=== PATIENT | male | born 1955 | race Caucasian/White ===

== ENCOUNTER 2017-02-13 11:01 | Day surgery (SDC) | payer BC ==
[~2017-02-13 11:01] MED LIST: ACETAMINOPHEN 1,000 MG/100 ML BTL IV ONE; CEFAZOLIN 2 Gram 2 GM/50 ML BAG IVPB ONE
[2017-02-13] MEDS ORDERED: MORPHINE SULFATE 5 MG/ML PFS IVP ONE (11:02)
[2017-02-13] MEDS ORDERED: PROPOFOL 10 MG/ML VIAL IV ONE (11:02)
[2017-02-13] MEDS ORDERED: LIDOCAINE 2% MDV (20MG/ML) 20ML VIAL IV ONE (11:02)
[2017-02-13] MEDS ORDERED: KETOROLAC 30 MG/ML VIAL IVP ONE (11:02)
[2017-02-13] MEDS ORDERED: SEVOFLURANE 250 ML INH ONE (11:02)
--- NOTE | 2017-02-14 07:36 | Operative Note ---
DATE: 02/13/2017. PREOPERATIVE DIAGNOSIS: INTERNAL DERANGEMENT OF THE LEFT KNEE. POSTOPERATIVE DIAGNOSES: 1. RADIAL FLAP TEAR INVOLVING MOST OF THE POSTERIOR HORN OF THE MEDIAL MENISCUS. 2. 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 PROCEDURES: 1. Left knee arthroscopy with partial medial meniscectomy. 2. Left knee arthroscopy with an articular debridement. STAFF SURGEON: Te Quiroga M.D. ANESTHESIA: General. PREPARATION: ChloraPrep. INDIVIDUAL CONSIDERATIONS: None. DESCRIPTION OF THE PROCEDURE: The patient was taken to the operating room and placed supine on the operating table. He had successful induction of a general anesthetic. Examination under anesthesia showed normal ligaments. The patient had a superolateral inflow cannula placed. The skin had been infiltrated with 0.5% Marcaine with epinephrine prior. The knee was inflated with normal saline. An inferomedial and an inferolateral portal were made through stab wounds. The joint was irrigated out. The arthroscope was introduced through the inferolateral portal up into this pouch. The patellofemoral joint showed small grade 3 change centrally in the patellar notch. I shaved it and it looked good. No significant synovitis was present in the pouch or either gutter. A shaver was introduced, and this area of chondromalacia was smoothed. Medially he had normal articular cartilage and an obvious large, deep radial flap tear involving the posterior horn of the medial meniscus. Basically, most of the posterior horn was debrided out with basket forceps and a shaver to a stable rim. However, that included taking most of it out. In the notch, the cruciates were normal. The lateral compartment structures were normal. The knee was then irrigated with saline to remove floating debris. The portals were closed with noé, and 20 mL of 0.25% plain Marcaine along with 4.0 mg of morphine and 40 mg of Depo Medrol were injected into the knee. A sterile, bulky compressive dressing was applied. The patient tolerated the procedure well. Needle and sponge counts were correct. Estimated blood loss was minimal. He was taken back to recovery in good condition. There were no complications. [id number]
== END 2017-02-13 15:10 | disposition home or self-care (01) ==
LOC: SUR 11:01
PROVIDERS: ATTEND Orthopaedic Surgery
DX: M23.222 Derangement of posterior horn of medial meniscus due to old tear or injury, left knee (principal); D35.2 Benign neoplasm of pituitary gland
CPT/HCPCS: 29881; 01400; J1885; J0690; J2270